=== PATIENT | male | born 1955 | race African-American/Black ===

== ENCOUNTER 2018-09-06 12:28 | Inpatient (IN) | payer MEDICARE ==
[~2018-09-06] VITALS: Ht 180.3 cm; Wt 84.1 kg
[2018-09-06 13:22] LABS: APPEARANCE,URINE CLEAR (CLEAR); BILIRUBIN,URINE NEGATIVE (NEGATIVE); GLUCOSE, URINE (UA) NEGATIVE (NEGATIVE); KETONES,URINE TRACE mg/dL (NEGATIVE); LEUKOCYTE ESTERASE ,URINE NEGATIVE (NEGATIVE); NITRATE,URINE NEGATIVE (NEGATIVE); OCCULT BLOOD,URINE TRACE (NEGATIVE); PROTEIN,URINE SEE CONFIRM (NEGATIVE); UROBILINOGEN,URINE 0.2 mg/dL (<=1.0)
[2018-09-06 13:23] LABS: GLUCOSE,POINT OF CARE 94 MG/DL (70-110)
[2018-09-06] MEDS ORDERED: CLON0.2T PO (13:23)
[2018-09-06] MEDS ORDERED: MELO-107 PO (13:23)
[2018-09-06] MEDS ORDERED: PROP10TA10 PO (13:23)
[2018-09-06] MEDS ORDERED: MIRT30 PO (13:23)
[2018-09-06 13:35] LABS: SULFOSALICYLIC ACID,URINE 2+ (Negative)
[2018-09-06 13:36] LABS: BACTERIA,URINE Moderate /HPF (None Seen); RBC,URINE 0-2 /HPF (0-2); SQUAMOUS EPITHELIAL CELL,UR Rare /LPF (None Seen); WBC,URINE 0-2 /HPF (0-5)
[2018-09-06 13:42] LABS: AMPHET/METH SCREEN,URINE NEGATIVE (NEGATIVE); BARBITURATE SCREEN, URINE NEGATIVE (NEGATIVE); BENZODIAZEPINES SCREEN,URINE NEGATIVE (NEGATIVE); CANNABINOID SCREEN,URINE NEGATIVE (NEGATIVE); COCAINE SCREEN,URINE NEGATIVE (NEGATIVE); METHADONE SCREEN, URINE POSITIVE (NEGATIVE); OPIATE SCREEN,URINE POSITIVE (NEGATIVE)
[2018-09-06 13:43] LABS: PHENCYCLIDINE SCREEN,URINE NEGATIVE (NEGATIVE)
[2018-09-06 13:51] LABS: ANION GAP 18 mmol/L (8-16); CALCIUM, TOTAL 8.6 mg/dL (8.8-10.5); CARBON DIOXIDE 19 mmol/L (22-29); CHLORIDE 99 mmol/L (98-107); CREATININE 1.08 mg/dL (0.60-1.30); GLOMERULAR FILTR. RATE CALC > 60 mL/min (>60); GLUCOSE,RANDOM 81 mg/dL (70-110); POTASSIUM 4.5 mmol/L (3.5-5.1); SODIUM SERUM 136 mmol/L (136-145); UREA NITROGEN, BLOOD 23 mg/dL (7-18)
[2018-09-06 14:15] LABS: ALANINE AMINOTRANSFERASE 46 U/L (12-78); ALBUMIN 3.7 g/dL (3.4-5.0); ALKALINE PHOSPHATASE 122 U/L (46-116); ASPARTATE AMINOTRANSFERASE 113 U/L (15-37); BILIRUBIN,TOTAL 0.4 mg/dL (0.1-1.0); CREATINE KINASE, TOTAL ONLY 154 U/L (39-308); TOTAL PROTEIN, SERUM 7.6 g/dL (6.4-8.2)
[2018-09-06 14:29] LABS: BASOPHILS % (AUTO) 0.2 % (0.0-2.0); EOSINOPHILS % (AUTO) 0.6 % (1.0-6.0); HEMATOCRIT 41.8 % (41-53); HEMOGLOBIN 13.9 g/dL (13.5-17.5); LYMPHOCYTES # (AUTO) 2.2 K/uL (1.0-4.8); LYMPHOCYTES % (AUTO) 26.9 % (22.0-44.0); MEAN CORPUSCULAR HEMOGLOBIN 29.4 pg (26.0-34.0); MEAN CORPUSCULAR HGB CONC 33.2 G/dL (31.0-37.0); MEAN CORPUSCULAR VOLUME 89 fL (80-100); MONOCYTES # (AUTO) 0.4 K/uL (0.1-1.0); MONOCYTES % (AUTO) 4.8 % (2.0-9.0); NEUTROPHILS # (AUTO) 5.6 K/uL (1.8-7.7); NEUTROPHILS % (AUTO) 67.5 % (40.0-70.0); PLATELET COUNT (AUTO) 223 K/uL (150-450); RED BLOOD CELL COUNT(AUTO) 4.71 MIL/uL (4.50-5.90); RED CELL DISTRIBUTION WIDTH 17.5 % (11.5-14.5)
[2018-09-06 14:38] LABS: INR 0.9 (0.9-1.1); PROTHROMBIN TIME 9.7 SEC (9.4-11.6)
[2018-09-06] MEDS ORDERED: CloNIDine HCL 0.2 MG TABLET PO ONE (14:45)
[2018-09-06] MEDS ORDERED: ONDANSETRON HCL 4 MG/2 ML VIAL IVP ONE ×2 (14:45→20:30)
[2018-09-06] MEDS ORDERED: SODIUM CHLORIDE 0.9% 1,000 ML IV ONE (15:00)
[2018-09-06] MEDS ORDERED: 0.9% SODIUM CHLORIDE 10 ML SYRINGE IVP PRN (16:30)
[2018-09-06] MEDS ORDERED: ONDANSETRON HCL 4 MG/2 ML VIAL IVP PRN ×2 (16:30→17:15)
[2018-09-06] MEDS ORDERED: ACETAMINOPHEN 325 MG TABLET PO PRN (16:30)
[2018-09-06] MEDS ORDERED: LORazepam 2 MG/ML VIAL IVP ONE (16:45)
[2018-09-06] MEDS ORDERED: NITROGLYCERIN 2% (1 GM=INCH) PACKET TP ONE ×2 (16:45→22:15)
[2018-09-06] MEDS ORDERED: MAGNESIUM HYDROXIDE SUSPENSION 30 ML UDCUP PO PRN (17:15)
[2018-09-06] MEDS ORDERED: MAGNESIUM SULFATE 2 GM, MVI, ADULT NO.1 WITH VIT K 10 ML, THIAMINE HCL 100 MG, FOLIC AC... IV ONE ×5 (17:15)
[2018-09-06] MEDS ORDERED: MORPHINE SULFATE 2 MG/ML SYRINGE IVP PRN (17:15)
[2018-09-06] MEDS ORDERED: BISACODYL 10 MG RECTAL RECTAL SUPPOSITORY PR PRN (17:15)
[2018-09-06] MEDS ORDERED: ZOLPIDEM TARTRATE 5 MG TABLET PO PRN (17:15)
[2018-09-06] MEDS: HydrALAZINE HCL 20 MG/ML VIAL IVP PRN (18:10)
[2018-09-06] MEDS: HYDROCODONE/ACETAMINOPHEN 5-325 MG TABLET PO PRN (19:15)
[2018-09-06] MEDS: DOCUSATE SODIUM 100 MG CAPSULE PO SCH (21:03)
[2018-09-06] MEDS: CloNIDine HCL 0.2 MG TABLET PO SCH (21:03)
[2018-09-06] MEDS: MIRTAZAPINE 30 MG TABLET PO SCH (21:03)
[2018-09-06] MEDS: PROPRANOLOL HCL 10 MG TABLET PO SCH (21:03)
[2018-09-06] MEDS ORDERED: AmLODIPine BESYLATE 10 MG TABLET PO ONE (22:15)
[2018-09-06] MEDS ORDERED: HydrALAZINE HCL 50 MG TABLET PO ONE (22:15)
[2018-09-06 22:18] VITALS: BP 212/119
[2018-09-06] MEDS: NITROGLYCERIN 2% (1 GM=INCH) PACKET TP SCH (23:51)
[2018-09-06] MEDS: HEPARIN SODIUM,PORCINE 5,000 UNITS/ML VIAL SQ SCH (23:56)
[2018-09-07] VITALS (10 sets, daily range): BP systolic 135–175; BP diastolic 70–92
[2018-09-07 06:35] LABS: BASOPHILS % (AUTO) 0.7 % (0.0-2.0); EOSINOPHILS % (AUTO) 0.7 % (1.0-6.0); HEMATOCRIT 37.8 % (41-53); HEMOGLOBIN 12.6 g/dL (13.5-17.5); LYMPHOCYTES # (AUTO) 2.1 K/uL (1.0-4.8); LYMPHOCYTES % (AUTO) 29.5 % (22.0-44.0); MEAN CORPUSCULAR HEMOGLOBIN 29.5 pg (26.0-34.0); MEAN CORPUSCULAR HGB CONC 33.5 G/dL (31.0-37.0); MEAN CORPUSCULAR VOLUME 88 fL (80-100); MONOCYTES # (AUTO) 0.7 K/uL (0.1-1.0); MONOCYTES % (AUTO) 10.3 % (2.0-9.0); NEUTROPHILS # (AUTO) 4.2 K/uL (1.8-7.7); NEUTROPHILS % (AUTO) 58.8 % (40.0-70.0); PLATELET COUNT (AUTO) 163 K/uL (150-450); RED BLOOD CELL COUNT(AUTO) 4.29 MIL/uL (4.50-5.90); RED CELL DISTRIBUTION WIDTH 17.6 % (11.5-14.5)
[2018-09-07 06:55] LABS: ALANINE AMINOTRANSFERASE 41 U/L (12-78); ALBUMIN 3.3 g/dL (3.4-5.0); ALKALINE PHOSPHATASE 98 U/L (46-116); ANION GAP 13 mmol/L (8-16); ASPARTATE AMINOTRANSFERASE 50 U/L (15-37); BILIRUBIN,TOTAL 0.9 mg/dL (0.1-1.0); CALCIUM, TOTAL 8.5 mg/dL (8.8-10.5); CARBON DIOXIDE 25 mmol/L (22-29); CHLORIDE 98 mmol/L (98-107); CREATININE 1.09 mg/dL (0.60-1.30); GLOMERULAR FILTR. RATE CALC > 60 mL/min (>60); GLUCOSE,RANDOM 71 mg/dL (70-110); POTASSIUM 4.4 mmol/L (3.5-5.1); SODIUM SERUM 136 mmol/L (136-145); TOTAL PROTEIN, SERUM 6.9 g/dL (6.4-8.2); UREA NITROGEN, BLOOD 20 mg/dL (7-18)
[2018-09-07] MEDS: HydrALAZINE HCL 20 MG/ML VIAL IVP PRN ×2 (08:09→16:28)
[2018-09-07] MEDS: NITROGLYCERIN 2% (1 GM=INCH) PACKET TP SCH ×2 (08:09→15:43)
[2018-09-07] MEDS: PROPRANOLOL HCL 10 MG TABLET PO SCH ×2 (08:10→20:41)
[2018-09-07] MEDS: AmLODIPine BESYLATE 10 MG TABLET PO SCH (08:10)
[2018-09-07] MEDS: HEPARIN SODIUM,PORCINE 5,000 UNITS/ML VIAL SQ SCH ×2 (08:10→15:43)
[2018-09-07] MEDS: DOCUSATE SODIUM 100 MG CAPSULE PO SCH ×2 (08:10→20:41)
[2018-09-07] MEDS: PANTOPRAZOLE SODIUM 40 MG DR TABLET PO SCH (08:10)
[2018-09-07] MEDS: MELOXICAM 7.5 MG TABLET PO SCH (08:10)
[2018-09-07] MEDS: HydrALAZINE HCL 50 MG TABLET PO SCH ×3 (08:11→20:41)
[2018-09-07] MEDS: LORazepam 2 MG/ML VIAL IVP PRN ×3 (09:09→22:23)
[2018-09-07] MEDS: CloNIDine HCL 0.2 MG TABLET PO SCH ×2 (09:09→20:45)
[2018-09-07] MEDS: METHADONE HCL 10 MG TABLET PO SCH (12:04)
[2018-09-07] MEDS: MIRTAZAPINE 30 MG TABLET PO SCH (20:41)
[2018-09-07] MEDS: ACETAMINOPHEN 325 MG TABLET PO PRN (20:43)
[2018-09-08] VITALS (8 sets, daily range): BP systolic 124–179; BP diastolic 86–106
[2018-09-08] MEDS: HEPARIN SODIUM,PORCINE 5,000 UNITS/ML VIAL SQ SCH ×4 (00:22→23:09)
[2018-09-08] MEDS: NITROGLYCERIN 2% (1 GM=INCH) PACKET TP SCH ×4 (00:23→23:09)
[2018-09-08] MEDS: METHADONE HCL 10 MG TABLET PO SCH (08:00)
[2018-09-08] MEDS: MELOXICAM 7.5 MG TABLET PO SCH (08:00)
[2018-09-08] MEDS: PANTOPRAZOLE SODIUM 40 MG DR TABLET PO SCH (08:00)
[2018-09-08] MEDS: AmLODIPine BESYLATE 10 MG TABLET PO SCH (08:00)
[2018-09-08] MEDS: PROPRANOLOL HCL 10 MG TABLET PO SCH ×2 (08:00→20:52)
[2018-09-08] MEDS: DOCUSATE SODIUM 100 MG CAPSULE PO SCH ×2 (08:01→20:53)
[2018-09-08] MEDS: CloNIDine HCL 0.2 MG TABLET PO SCH ×2 (08:01→20:54)
[2018-09-08] MEDS: HydrALAZINE HCL 50 MG TABLET PO SCH ×3 (08:01→20:53)
[2018-09-08] MEDS ORDERED: AMLO-512 PO (11:55)
[2018-09-08] MEDS ORDERED: DSS100 PO (11:56)
[2018-09-08] MEDS ORDERED: HYDR10TA31 PO (11:56)
[2018-09-08] MEDS ORDERED: METH10 PO (11:57)
[2018-09-08] MEDS ORDERED: MIRT30 PO (11:57)
[2018-09-08] MEDS: LORazepam 2 MG/ML VIAL IVP PRN ×2 (12:04→19:45)
[2018-09-08] MEDS: HYDROCODONE/ACETAMINOPHEN 5-325 MG TABLET PO PRN (19:46)
[2018-09-08] MEDS: MIRTAZAPINE 30 MG TABLET PO SCH (20:53)
[2018-09-09] VITALS (7 sets, daily range): BP systolic 135–182; BP diastolic 68–105
[2018-09-09] MEDS: LORazepam 2 MG/ML VIAL IVP PRN ×5 (05:04→21:15)
[2018-09-09] MEDS: HydrALAZINE HCL 20 MG/ML VIAL IVP PRN (07:18)
[2018-09-09] MEDS: HEPARIN SODIUM,PORCINE 5,000 UNITS/ML VIAL SQ SCH ×2 (07:48→17:17)
[2018-09-09] MEDS: NITROGLYCERIN 2% (1 GM=INCH) PACKET TP SCH ×2 (07:49→17:17)
[2018-09-09] MEDS: METHADONE HCL 10 MG TABLET PO SCH (08:02)
[2018-09-09] MEDS: DOCUSATE SODIUM 100 MG CAPSULE PO SCH ×2 (08:02→21:15)
[2018-09-09] MEDS: PROPRANOLOL HCL 10 MG TABLET PO SCH ×2 (08:02→21:15)
[2018-09-09] MEDS: MELOXICAM 7.5 MG TABLET PO SCH (08:02)
[2018-09-09] MEDS: PANTOPRAZOLE SODIUM 40 MG DR TABLET PO SCH (08:02)
[2018-09-09] MEDS: AmLODIPine BESYLATE 10 MG TABLET PO SCH (08:03)
[2018-09-09] MEDS: HydrALAZINE HCL 50 MG TABLET PO SCH ×3 (09:01→21:14)
[2018-09-09] MEDS: CloNIDine HCL 0.2 MG TABLET PO SCH ×2 (09:01→21:14)
[2018-09-09] MEDS: MIRTAZAPINE 30 MG TABLET PO SCH (21:14)
[2018-09-10] MEDS: HEPARIN SODIUM,PORCINE 5,000 UNITS/ML VIAL SQ SCH ×2 (00:30→08:09)
[2018-09-10] MEDS: NITROGLYCERIN 2% (1 GM=INCH) PACKET TP SCH ×4 (00:31→23:37)
[2018-09-10 04:16] VITALS: BP 142/96
[2018-09-10 06:08] LABS: BASOPHILS % (AUTO) 0.5 % (0.0-2.0); EOSINOPHILS % (AUTO) 1.7 % (1.0-6.0); HEMATOCRIT 40.8 % (41-53); HEMOGLOBIN 13.6 g/dL (13.5-17.5); LYMPHOCYTES # (AUTO) 2.4 K/uL (1.0-4.8); LYMPHOCYTES % (AUTO) 30.3 % (22.0-44.0); MEAN CORPUSCULAR HEMOGLOBIN 29.8 pg (26.0-34.0); MEAN CORPUSCULAR HGB CONC 33.3 G/dL (31.0-37.0); MEAN CORPUSCULAR VOLUME 89 fL (80-100); MONOCYTES # (AUTO) 0.8 K/uL (0.1-1.0); MONOCYTES % (AUTO) 10.1 % (2.0-9.0); NEUTROPHILS # (AUTO) 4.6 K/uL (1.8-7.7); NEUTROPHILS % (AUTO) 57.4 % (40.0-70.0); PLATELET COUNT (AUTO) 134 K/uL (150-450); RED BLOOD CELL COUNT(AUTO) 4.56 MIL/uL (4.50-5.90); RED CELL DISTRIBUTION WIDTH 18.6 % (11.5-14.5)
[2018-09-10 06:28] LABS: ALANINE AMINOTRANSFERASE 28 U/L (12-78); ALBUMIN 3.2 g/dL (3.4-5.0); ALKALINE PHOSPHATASE 83 U/L (46-116); ANION GAP 6 mmol/L (8-16); ASPARTATE AMINOTRANSFERASE 21 U/L (15-37); BILIRUBIN,TOTAL 0.6 mg/dL (0.1-1.0); CALCIUM, TOTAL 8.8 mg/dL (8.8-10.5); CARBON DIOXIDE 30 mmol/L (22-29); CHLORIDE 98 mmol/L (98-107); CREATININE 1.14 mg/dL (0.60-1.30); GLOMERULAR FILTR. RATE CALC > 60 mL/min (>60); GLUCOSE,RANDOM 111 mg/dL (70-110); POTASSIUM 3.7 mmol/L (3.5-5.1); SODIUM SERUM 134 mmol/L (136-145); TOTAL PROTEIN, SERUM 7.3 g/dL (6.4-8.2); UREA NITROGEN, BLOOD 14 mg/dL (7-18)
[2018-09-10 07:04] VITALS: BP 149/97
[2018-09-10] MEDS: LORazepam 2 MG/ML VIAL IVP PRN ×3 (08:09→20:32)
[2018-09-10] MEDS: HydrALAZINE HCL 50 MG TABLET PO SCH ×3 (08:09→21:00)
[2018-09-10] MEDS: AmLODIPine BESYLATE 10 MG TABLET PO SCH (08:10)
[2018-09-10] MEDS: MELOXICAM 7.5 MG TABLET PO SCH (08:10)
[2018-09-10] MEDS: PANTOPRAZOLE SODIUM 40 MG DR TABLET PO SCH (08:10)
[2018-09-10] MEDS: CloNIDine HCL 0.2 MG TABLET PO SCH ×2 (09:20→20:23)
[2018-09-10] MEDS: DOCUSATE SODIUM 100 MG CAPSULE PO SCH ×2 (09:20→20:23)
[2018-09-10] MEDS: METHADONE HCL 10 MG TABLET PO SCH (09:20)
[2018-09-10] MEDS: PROPRANOLOL HCL 10 MG TABLET PO SCH ×2 (09:20→20:24)
[2018-09-10] MEDS: HYDROCODONE/ACETAMINOPHEN 5-325 MG TABLET PO PRN ×2 (09:20→20:32)
[2018-09-10] MEDS ORDERED: ACET-2247 PO (09:43)
[2018-09-10] MEDS ORDERED: BISA10S PR (09:43)
[2018-09-10 10:57] VITALS: BP 142/90
[2018-09-10] MEDS ORDERED: SODIUM CHLORIDE 0.9% 100 ML ONE (11:19)
[2018-09-10] MEDS ORDERED: IOVERSOL 350 MG/ML 100 ML VIAL ONE (11:19)
[2018-09-10] MEDS ORDERED: HEPARIN SODIUM,PORCINE 5,000 UNITS/ML VIAL IVP PRN ×2 (15:00)
[2018-09-10] MEDS ORDERED: HEPARIN SODIUM,PORCINE 5,000 UNITS/ML VIAL IVP ONE (15:00)
[2018-09-10 15:29] VITALS: BP 138/88
[2018-09-10] MEDS ORDERED: SODIUM CHLORIDE 0.9% 0 ML IV ONE (15:32)
[2018-09-10] MEDS: HEPARIN SODIUM 25000 UNITS/D5W 250 ML IV PRN (15:58)
[2018-09-10 16:23] LABS: BASOPHILS % (AUTO) 0.9 % (0.0-2.0); EOSINOPHILS % (AUTO) 1.3 % (1.0-6.0); HEMATOCRIT 42.1 % (41-53); LYMPHOCYTES # (AUTO) 2.6 K/uL (1.0-4.8); LYMPHOCYTES % (AUTO) 26.9 % (22.0-44.0); MEAN CORPUSCULAR HEMOGLOBIN 29.7 pg (26.0-34.0); MEAN CORPUSCULAR HGB CONC 33.2 G/dL (31.0-37.0); MEAN CORPUSCULAR VOLUME 90 fL (80-100); MONOCYTES # (AUTO) 0.9 K/uL (0.1-1.0); MONOCYTES % (AUTO) 9.9 % (2.0-9.0); NEUTROPHILS # (AUTO) 5.9 K/uL (1.8-7.7); PLATELET COUNT (AUTO) 148 K/uL (150-450); RED CELL DISTRIBUTION WIDTH 18.5 % (11.5-14.5)
[2018-09-10 16:39] LABS: PROTHROMBIN TIME 10.4 SEC (9.4-11.6)
[2018-09-10 19:25] VITALS: BP 127/85
[2018-09-10] MEDS: MIRTAZAPINE 30 MG TABLET PO SCH (20:24)
[2018-09-10 23:34] VITALS: BP 91/56
[2018-09-11] VITALS (8 sets, daily range): BP systolic 115–142; BP diastolic 70–91
[2018-09-11] MEDS: LORazepam 2 MG/ML VIAL IVP PRN ×3 (04:44→22:04)
[2018-09-11 06:29] LABS: BASOPHILS % (AUTO) 0.8 % (0.0-2.0); EOSINOPHILS % (AUTO) 1.9 % (1.0-6.0); HEMATOCRIT 38.3 % (41-53); HEMOGLOBIN 12.9 g/dL (13.5-17.5); LYMPHOCYTES % (AUTO) 23.6 % (22.0-44.0); MEAN CORPUSCULAR HEMOGLOBIN 29.8 pg (26.0-34.0); MEAN CORPUSCULAR HGB CONC 33.8 G/dL (31.0-37.0); MEAN CORPUSCULAR VOLUME 88 fL (80-100); MONOCYTES # (AUTO) 0.9 K/uL (0.1-1.0); MONOCYTES % (AUTO) 9.8 % (2.0-9.0); NEUTROPHILS # (AUTO) 5.5 K/uL (1.8-7.7); NEUTROPHILS % (AUTO) 63.9 % (40.0-70.0); PLATELET COUNT (AUTO) 137 K/uL (150-450); RED BLOOD CELL COUNT(AUTO) 4.33 MIL/uL (4.50-5.90); RED CELL DISTRIBUTION WIDTH 18.6 % (11.5-14.5)
[2018-09-11 06:50] LABS: ALBUMIN 3.1 g/dL (3.4-5.0); BILIRUBIN,TOTAL 0.3 mg/dL (0.1-1.0); CALCIUM, TOTAL 8.7 mg/dL (8.8-10.5); CREATININE 1.61 mg/dL (0.60-1.30); POTASSIUM 3.9 mmol/L (3.5-5.1); TOTAL PROTEIN, SERUM 7.2 g/dL (6.4-8.2)
[2018-09-11] MEDS: HydrALAZINE HCL 50 MG TABLET PO SCH ×3 (09:00→21:00)
[2018-09-11] MEDS: HEPARIN SODIUM 25000 UNITS/D5W 250 ML IV PRN (09:07)
[2018-09-11] MEDS: NITROGLYCERIN 2% (1 GM=INCH) PACKET TP SCH ×2 (09:08→16:46)
[2018-09-11] MEDS: DOCUSATE SODIUM 100 MG CAPSULE PO SCH ×2 (09:08→20:46)
[2018-09-11] MEDS: PANTOPRAZOLE SODIUM 40 MG DR TABLET PO SCH (09:08)
[2018-09-11] MEDS: MELOXICAM 7.5 MG TABLET PO SCH (09:09)
[2018-09-11] MEDS: METHADONE HCL 10 MG TABLET PO SCH (09:10)
[2018-09-11] MEDS: AmLODIPine BESYLATE 10 MG TABLET PO SCH (11:40)
[2018-09-11] MEDS: PROPRANOLOL HCL 10 MG TABLET PO SCH ×2 (11:40→21:00)
[2018-09-11] MEDS: CloNIDine HCL 0.2 MG TABLET PO SCH ×2 (13:47→20:47)
[2018-09-11] MEDS: MIRTAZAPINE 30 MG TABLET PO SCH (20:47)
[2018-09-12] MEDS: HEPARIN SODIUM 25000 UNITS/D5W 250 ML IV PRN (02:17)
[2018-09-12 04:16] VITALS: BP 109/70
[2018-09-12] MEDS: LORazepam 2 MG/ML VIAL IVP PRN (05:16)
[2018-09-12] MEDS: ACETAMINOPHEN 325 MG TABLET PO PRN (05:17)
[2018-09-12 05:45] LABS: BASOPHILS % (AUTO) 0.9 % (0.0-2.0); EOSINOPHILS % (AUTO) 1.9 % (1.0-6.0); HEMATOCRIT 38.4 % (41-53); HEMOGLOBIN 12.7 g/dL (13.5-17.5); LYMPHOCYTES # (AUTO) 1.9 K/uL (1.0-4.8); LYMPHOCYTES % (AUTO) 24.9 % (22.0-44.0); MEAN CORPUSCULAR HEMOGLOBIN 29.8 pg (26.0-34.0); MEAN CORPUSCULAR HGB CONC 33.1 G/dL (31.0-37.0); MEAN CORPUSCULAR VOLUME 90 fL (80-100); MONOCYTES # (AUTO) 0.8 K/uL (0.1-1.0); MONOCYTES % (AUTO) 10.4 % (2.0-9.0); NEUTROPHILS # (AUTO) 4.7 K/uL (1.8-7.7); NEUTROPHILS % (AUTO) 61.9 % (40.0-70.0); PLATELET COUNT (AUTO) 149 K/uL (150-450); RED BLOOD CELL COUNT(AUTO) 4.26 MIL/uL (4.50-5.90); RED CELL DISTRIBUTION WIDTH 18.6 % (11.5-14.5)
[2018-09-12 06:07] LABS: BILIRUBIN,TOTAL 0.4 mg/dL (0.1-1.0); CALCIUM, TOTAL 8.6 mg/dL (8.8-10.5); CREATININE 1.72 mg/dL (0.60-1.30); POTASSIUM 3.8 mmol/L (3.5-5.1); TOTAL PROTEIN, SERUM 7.3 g/dL (6.4-8.2)
[2018-09-12 07:54] VITALS: BP 100/57
[2018-09-12] MEDS: DOCUSATE SODIUM 100 MG CAPSULE PO SCH (08:14)
[2018-09-12] MEDS: CloNIDine HCL 0.2 MG TABLET PO SCH (08:14)
[2018-09-12] MEDS: MELOXICAM 7.5 MG TABLET PO SCH (08:15)
[2018-09-12] MEDS: HydrALAZINE HCL 50 MG TABLET PO SCH (08:15)
[2018-09-12] MEDS: PANTOPRAZOLE SODIUM 40 MG DR TABLET PO SCH (08:15)
[2018-09-12] MEDS: AmLODIPine BESYLATE 10 MG TABLET PO SCH (08:15)
[2018-09-12] MEDS: PROPRANOLOL HCL 10 MG TABLET PO SCH (08:15)
[2018-09-12] MEDS: METHADONE HCL 10 MG TABLET PO SCH (08:18)
[2018-09-12 08:20] VITALS: BP 118/71
[2018-09-12] MEDS ORDERED: APIXABAN 5 MG TABLET PO SCH (09:00)
[2018-09-12] MEDS ORDERED: PANT40TA25 PO (09:46)
[2018-09-12] MEDS ORDERED: APIX5TAB PO ×4 (09:47→09:50)
[2018-09-12 11:47] VITALS: BP 129/77
== END 2018-09-12 13:55 | DRG 917 ==
LOC: EMS 12:29 → 5S 18:07 → 5N 09-10 17:41
PROVIDERS: ADMIT Internal Medicine; ATTEND Internal Medicine
DX: T40.2X1A Poisoning by other opioids, accidental (unintentional), initial encounter (principal); G92 Toxic encephalopathy; I26.99 Other pulmonary embolism without acute cor pulmonale; I16.0 Hypertensive urgency; F10.129 Alcohol abuse with intoxication, unspecified; Y92.89 Other specified places as the place of occurrence of the external cause; F11.10 Opioid abuse, uncomplicated; I11.9 Hypertensive heart disease without heart failure; Z85.46 Personal history of malignant neoplasm of prostate; Z87.891 Personal history of nicotine dependence; Z28.21 Immunization not carried out because of patient refusal
CPT/HCPCS: 71275; 87086; 90686; 93005; 93306; 96361; 96374; 96375; 97116; 97162; 97530; G0378; G0480; J0360; J1644; J2060; J2405; J3411; J3475; J3490; J7030; J7050